=== PATIENT | female | born 1995 | race Caucasian/White ===

== ENCOUNTER 2016-09-29 17:24 | Emergency (ER) | payer OTHER, MEDICAID ==
[~2016-09-29] VITALS: Ht 152.4 cm; Wt 77.1 kg
[~2016-09-29 17:24] MED LIST: AEROCHAMBER1 DEV IH; ALBUTEROL2 PUFFS/17 IN; APAP/OXYCODONE1 TA1 PO; BACTRIM DS 8001 TAB PO; CIPRO 500MG TA500 MG PO; FEROSUL325 MG PO; GABAPENTIN 600600 MG PO; IBUPROFEN 600M600 MG PO; LORTAB 5/500 501 TAB PO; MACROBID 100MG100 M1 PO; MOTRIN400 MG PO; NAPROSYN 500MG500 MG PO; NOMEDS; PERCOCET 5/3251 EACH PO; PRENATAL VITAMI1 TA3 PO; SENNA DOCUSATE1 TAB PO; ZITHROMAX Z PA250 MG PO
[2016-09-29 17:47] LABS: URINE BILIRUBIN - DIPSTICK NEGATIVE (NEG); URINE BLOOD 3+ (NEG)
[2016-09-29 17:59] LABS: HEMOGLOBIN 14.1 g/dL (12.2-16.2); LYMPH # 3.4 K/mm3 (0.7-4.5); LYMPH % 25.3 % (10-50.0)
--- NOTE | 2016-09-29 19:06 | Emergency Room Report ---
History of Present Illness Time Seen by [id number] Presenting Problem in Triage Pt arrived:Walked Presenting Problem:PT C/O RLQ PAIN THAT HAS BEEN CONSISTENTLY GETTING WORSE OVER THE LAST 3 DAYS. PT DENIES ANY N/V/D OR VAGINAL BLEEDING. 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 N Clinical Suspician of Infection? N Mental Status: 1 - Regular (Normal Baseline) Sepsis Risk:Low Sepsis Risk Have you (or family members/close friends) recently traveled outside the [place]? N If Yes, where/when: Have you had exposure to infectious disease within the past month? N TB? Other? Specify: Comment The patient complains of RIGHT lower quadrant abdominal pain for 3 days. She denies nausea, vomiting, diarrhea, or fever. She has dysuria, burning, at the end of urination and for 5 minutes afterwards. No gross hematuria. She has had prior appendectomy and RIGHT nephrectomy. ALLERGIES Coded Allergies: PEANUTS (FOOD) (Severe, STOMACH PAIN, THROAT SWELLING 03/16/16) latex (Intermediate, I-ITCHING 03/16/16) NSAIDS (Non-Steroidal Anti-Inflamma (R/T RIGHT NEPHRECTOMY 03/16/16) Penicillins (03/16/16) penicillin V (Severe, NA-DIARRHEA 03/16/16) Home Medications Reported Medications Gabapentin (Gabapentin 600MG) 600 MG PO Q8 #90 History Medical History General CAD? No Angina: No [place]: No Hypertension? No Hyperlipidemia? No CHF? No DVT? No PE? No COPD? No Asthma? No Anemia? No GERD? No Gastric ulcers? No GI Bleed? No Hernia? No Thyroid Problems? No Hypothyroidism? No CVA? No Seizures? No Diabetes? No Renal Insuffiency? No End Stage Renal Disease? No UTI? Yes Stones? Yes BPH? No GB Disease: No Nephritic Syndrome? No Asplenia? No Hepatitis? No Sickle Cell Disease? No Arthritis? No Migraines? No Cataracts? No Glaucoma? No MRSA? No HIV? No TB? No Anxiety? No Depression? No Cancer? No More? 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 denies: abnormal vaginal bleeding, hematuria. Physical Exam Vital Signs Vital Signs Date Time Temp Pulse Resp B/P Pulse O2 O2 Flow FiO2 Ox Delivery Rate 09/29 1815 75 16 135/79 99 09/29 1727 98.5 78 18 120/65 96 General Appearance normal appearance, WD/WN Eye Exam - bilateral eye normal exam, bilateral eye PERRL, bilateral eye EOMI Ear, Nose, Throat hearing grossly normal, normal ENT inspection Neck normal inspection, non-tender, supple, full range of motion Respiratory Status Yes: trachea midline, chest symmetrical, non tender chest. No: respiratory distress. Lung Sounds bilateral: normal breath sounds, lungs clear. 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 Yes George was queried for this patient? Yes Reference #: [id number] Comment 1 rx. tylenol #3 on 03/16/16. Results/Orders Laboratory Tests 09/29/16 1745: Sodium 142, Potassium 3.7, Chloride 104, Carbon Dioxide 28, BUN 11, Creatinine 0.8, Estimated Creat Clear 134, Estimated GFR (MDRD) 90, Glucose 75, Calcium 8.7 , Total Bilirubin 0.3, AST 20, ALT 26, Alkaline Phosphatase 112, Total Protein 7.5, Albumin 3.7, Globulin 3.8 H, Albumin/Globulin Ratio 1.0 L, Amylase 70, Lipase 166, WBC 13.4 H, RBC 4.45, Hgb 14.1, Hct 40.3, MCV 90.4, RDW 13.6, Plt Count 259, MPV 9.1, Gran % 62.6, Gran # 8.4 H, Lymphocytes % 25.3, Monocytes % 7.0, Eosinophils % 4.2, Basophils % 0.9, Lymphocytes # 3.4, Monocytes # 0.9, Eosinophils # 0.6 H, Basophils # 0.1, PUBS MCHC 35.1, MCH 31.7 H 09/29/16 174: Urine Color YELLOW, Urine Appearance CLEAR, Urine pH 6.0, Ur Specific [place] 1.025, Urine Protein 1+ H, Urine Ketones NEGATIVE, Urine Blood 3+ H, Urine Nitrate NEGATIVE, Urine Bilirubin NEGATIVE, Urine Urobilinogen 0.2, Ur Leukocyte Esterase 3+ H, Urine RBC 10-20, Urine WBC 20-50, Amorphous Sediment 2+, Urine Bacteria 2+, Urine Glucose NEGATIVE Current Medication Orders Sig/Reji Start time Last Medication Dose Route Stop Time Status Admin Morphine Sulfate 4 MG ONCE ONE 09/29 1929 DC IV 09/29 1930 Ondansetron HCl 4 MG ONCE ONE 09/29 1929 DC IV 09/29 1930 Phenazopyridine HCl 200 MG ONCE ONE 09/29 1929 DC PO 09/29 1930 Trimethoprim/ 1 TABLET ONCE ONE 09/29 1929 DCr Sulfamethoxazole PO 09/29 1930 Sodium Chloride 10 ML PRN PRN 09/29 1745 AC IV 09/30 173 Orders Procedure Date/time Status DIET-NOTHING BY MOUTH 09/[address] ABD & PELVIS W/O CONTRAST 09/29 180 Active CULTURE, URINE 09/[address] ABD/PELVIS REQ 09/29 173 Complete IV SALINE LOCK 09/29 173 Active LIPASE 09/29 173 Complete CBC WITH AUTO DIFF 09/29 173 Complete CHEM 12 PROFILE 09/29 173 Complete AMYLASE 09/29 173 Complete URINALYSIS/COMPLETE 09/29 1734 Complete URINE 09/29 173 Complete XRAY/CT/US XRAY/CT/US CT abdomen, pelvis Comment CT scan interpreted by [facility] radiologist. Faxed report received and reviewed: 1.6 cm LEFT ovarian cyst several mildly enlarged lymph nodes within the RIGHT lower quadrant and mesenteric root similar to prior study, likely reactive, but can be seen with mesenteric adenitis. Surgically absent appendix. RIGHT kidney surgically absent. Departure Departure Disposition DC Home or Self Care(routine) Clinical Impression Primary Impression: Right lower quadrant abdominal pain Secondary Impressions: Urinary tract infection Qualifiers: Urinary tract infection type: acute cystitis Hematuria presence: with hematuria Qualified Code: N30.01 - Acute cystitis with hematuria Condition STABLE Referrals Caden Nielsen (Family) Patient Instructions DI for Abdominal Pain-Adult, DI for Urinary Tract Infection (UTI) Additional Instructions Additional instructions for ABDOMINAL PAIN: See your physician as soon as possible for further evaluation. Return immediately if worsening abdominal pain, vomiting, shortness of breath, fever, vomiting of blood or abdominal distention. Additional instructions for URINARY TRACT INFECTION: See your physician as soon as possible for further evaluation. Return immediately if you have an uncontrollable fever greater than 102 degrees, severe back or abdominal pain, inability to urinate, or repetetive vomiting. Prescriptions Current Visit Scripts SULFAMETHOXAZOLE W/TRIMETHOPRI (Bactrim Ds Tab) 1 TAB PO BID #20 TAB Phenazopyridine HCl (Pyridium) 200 MG PO TID #9 TAB HYDROCODONE/ACETAMINOPHEN ([place] 5-325 Tablet) 1 TAB PO Q6HP PRN pain #10 TAB ED Critical Care Critical Care No at 1934
--- NOTE | 2016-09-29 19:06 | Emergency Room Report ---
History of Present Illness Time Seen by [id number] Presenting Problem in Triage Pt arrived:Walked Presenting Problem:PT C/O RLQ PAIN THAT HAS BEEN CONSISTENTLY GETTING WORSE OVER THE LAST 3 DAYS. PT DENIES ANY N/V/D OR VAGINAL BLEEDING. 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 N Clinical Suspician of Infection? N Mental Status: 1 - Regular (Normal Baseline) Sepsis Risk:Low Sepsis Risk Have you (or family members/close friends) recently traveled outside the [place]? N If Yes, where/when: Have you had exposure to infectious disease within the past month? N TB? Other? Specify: Comment The patient complains of RIGHT lower quadrant abdominal pain for 3 days. She denies nausea, vomiting, diarrhea, or fever. She has dysuria, burning, at the end of urination and for 5 minutes afterwards. No gross hematuria. She has had prior appendectomy and RIGHT nephrectomy. ALLERGIES Coded Allergies: PEANUTS (FOOD) (Severe, STOMACH PAIN, THROAT SWELLING 03/16/16) latex (Intermediate, I-ITCHING 03/16/16) NSAIDS (Non-Steroidal Anti-Inflamma (R/T RIGHT NEPHRECTOMY 03/16/16) Penicillins (03/16/16) penicillin V (Severe, NA-DIARRHEA 03/16/16) Home Medications Reported Medications Gabapentin (Gabapentin 600MG) 600 MG PO Q8 #90 History Medical History General CAD? No Angina: No [place]: No Hypertension? No Hyperlipidemia? No CHF? No DVT? No PE? No COPD? No Asthma? No Anemia? No GERD? No Gastric ulcers? No GI Bleed? No Hernia? No Thyroid Problems? No Hypothyroidism? No CVA? No Seizures? No Diabetes? No Renal Insuffiency? No End Stage Renal Disease? No UTI? Yes Stones? Yes BPH? No GB Disease: No Nephritic Syndrome? No Asplenia? No Hepatitis? No Sickle Cell Disease? No Arthritis? No Migraines? No Cataracts? No Glaucoma? No MRSA? No HIV? No TB? No Anxiety? No Depression? No Cancer? No More? 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 denies: abnormal vaginal bleeding, hematuria. Physical Exam Vital Signs Vital Signs Date Time Temp Pulse Resp B/P Pulse O2 O2 Flow FiO2 Ox Delivery Rate 09/29 1815 75 16 135/79 99 09/29 1727 98.5 78 18 120/65 96 General Appearance normal appearance, WD/WN Eye Exam - bilateral eye normal exam, bilateral eye PERRL, bilateral eye EOMI Ear, Nose, Throat hearing grossly normal, normal ENT inspection Neck normal inspection, non-tender, supple, full range of motion Respiratory Status Yes: trachea midline, chest symmetrical, non tender chest. No: respiratory distress. Lung Sounds bilateral: normal breath sounds, lungs clear. 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 Yes George was queried for this patient? Yes Reference #: [id number] Comment 1 rx. tylenol #3 on 03/16/16. Results/Orders Laboratory Tests 09/29/16 1745: Sodium 142, Potassium 3.7, Chloride 104, Carbon Dioxide 28, BUN 11, Creatinine 0.8, Estimated Creat Clear 134, Estimated GFR (MDRD) 90, Glucose 75, Calcium 8.7 , Total Bilirubin 0.3, AST 20, ALT 26, Alkaline Phosphatase 112, Total Protein 7.5, Albumin 3.7, Globulin 3.8 H, Albumin/Globulin Ratio 1.0 L, Amylase 70, Lipase 166, WBC 13.4 H, RBC 4.45, Hgb 14.1, Hct 40.3, MCV 90.4, RDW 13.6, Plt Count 259, MPV 9.1, Gran % 62.6, Gran # 8.4 H, Lymphocytes % 25.3, Monocytes % 7.0, Eosinophils % 4.2, Basophils % 0.9, Lymphocytes # 3.4, Monocytes # 0.9, Eosinophils # 0.6 H, Basophils # 0.1, PUBS MCHC 35.1, MCH 31.7 H 09/29/16 174: Urine Color YELLOW, Urine Appearance CLEAR, Urine pH 6.0, Ur Specific [place] 1.025, Urine Protein 1+ H, Urine Ketones NEGATIVE, Urine Blood 3+ H, Urine Nitrate NEGATIVE, Urine Bilirubin NEGATIVE, Urine Urobilinogen 0.2, Ur Leukocyte Esterase 3+ H, Urine RBC 10-20, Urine WBC 20-50, Amorphous Sediment 2+, Urine Bacteria 2+, Urine Glucose NEGATIVE Current Medication Orders Sig/Reji Start time Last Medication Dose Route Stop Time Status Admin Morphine Sulfate 4 MG ONCE ONE 09/29 1929 DC IV 09/29 1930 Ondansetron HCl 4 MG ONCE ONE 09/29 1929 DC IV 09/29 1930 Phenazopyridine HCl 200 MG ONCE ONE 09/29 1929 DC PO 09/29 1930 Trimethoprim/ 1 TABLET ONCE ONE 09/29 1929 DCr Sulfamethoxazole PO 09/29 1930 Sodium Chloride 10 ML PRN PRN 09/29 1745 AC IV 09/30 173 Orders Procedure Date/time Status DIET-NOTHING BY MOUTH 09/[address] ABD & PELVIS W/O CONTRAST 09/29 180 Active CULTURE, URINE 09/[address] ABD/PELVIS REQ 09/29 173 Complete IV SALINE LOCK 09/29 173 Active LIPASE 09/29 173 Complete CBC WITH AUTO DIFF 09/29 173 Complete CHEM 12 PROFILE 09/29 173 Complete AMYLASE 09/29 173 Complete URINALYSIS/COMPLETE 09/29 1734 Complete URINE 09/29 173 Complete XRAY/CT/US XRAY/CT/US CT abdomen, pelvis Comment CT scan interpreted by [facility] radiologist. Faxed report received and reviewed: 1.6 cm LEFT ovarian cyst several mildly enlarged lymph nodes within the RIGHT lower quadrant and mesenteric root similar to prior study, likely reactive, but can be seen with mesenteric adenitis. Surgically absent appendix. RIGHT kidney surgically absent. Departure Departure Disposition DC Home or Self Care(routine) Clinical Impression Primary Impression: Right lower quadrant abdominal pain Secondary Impressions: Urinary tract infection Qualifiers: Urinary tract infection type: acute cystitis Hematuria presence: with hematuria Qualified Code: N30.01 - Acute cystitis with hematuria Condition STABLE Referrals Caden Nielsen (Family) Patient Instructions DI for Abdominal Pain-Adult, DI for Urinary Tract Infection (UTI) Additional Instructions Additional instructions for ABDOMINAL PAIN: See your physician as soon as possible for further evaluation. Return immediately if worsening abdominal pain, vomiting, shortness of breath, fever, vomiting of blood or abdominal distention. Additional instructions for URINARY TRACT INFECTION: See your physician as soon as possible for further evaluation. Return immediately if you have an uncontrollable fever greater than 102 degrees, severe back or abdominal pain, inability to urinate, or repetetive vomiting. Prescriptions Current Visit Scripts SULFAMETHOXAZOLE W/TRIMETHOPRI (Bactrim Ds Tab) 1 TAB PO BID #20 TAB Phenazopyridine HCl (Pyridium) 200 MG PO TID #9 TAB HYDROCODONE/ACETAMINOPHEN ([place] 5-325 Tablet) 1 TAB PO Q6HP PRN pain #10 TAB ED Critical Care Critical Care No at 1934
[2016-09-29] MEDS ORDERED: BACTRIM DS 8001 TA1 PO (19:29)
[2016-09-29] MEDS ORDERED: PYRIDIUM200 M2 PO (19:29)
[2016-09-29] MEDS ORDERED: NORCO 325 MG-51 TAB PO (19:29)
[2016-09-29 20:02] VITALS: BP 132/85
--- NOTE | 2016-09-30 05:30 | RADIOLOGY REPORT PS360 ---
CT ABD PELVIS W/O CONTRAST CLINICAL INDICATION: Right lower quadrant pain RLQ PAIN COMPARISON: 11/08/2013 TECHNIQUE: Axial images obtained with sagittal and coronal reformats. PROCEDURE: Oral Contrast: None IV Contrast: None . FINDINGS: Lower thorax: 2 mm nodule right lung base laterally nonspecific. 5 mm noncalcified nodule right lung base laterally unchanged ABDOMEN: Liver: No masses or biliary dilatation. Gallbladder: Nondistended. No radio opaque stones. Pancreas: No masses or peripancreatic fluid collections. Spleen: Unremarkable. Adrenals: Unremarkable Kidneys/ureters: Prior right nephrectomy. Unremarkable left kidney. No hydronephrosis or obstructing ureteral calculi. PELVIS: Reproductive: 1.8 cm left ovarian cyst Bladder: Nondistended. No obvious stones or masses. Appendix: Reported appendectomy. No evidence of appendicitis ABDOMEN & PELVIS: Stomach bowel: Moderate amount retained colonic feces. No evidence of intestinal obstruction. Peritoneum: No abnormal fluid collections. No obvious inflammatory changes. No free air. Lymph nodes: Scattered small lymph nodes are present in the mesenteric root and right lower quadrant. These are not significantly changed. The largest nodes in the right lower quadrant measuring up to 1.5 x 1.1 cm. Vasculature: No evidence of abdominal aortic aneurysm. No retroperitoneal hemorrhage evident. Bones: No acute fracture IMPRESSION: 1. No acute intra-abdominal or pelvic pathology. 2. Scattered small lymph nodes in the mesenteric root and right lower quadrant not significant changed. This may be reactive. Mesenteric adenitis also a consideration. 3. 1.8 cm left ovarian cyst. 4. Constipation 5. Prior right nephrectomy
== END 2016-09-29 20:03 | disposition home or self-care (01) ==
LOC: ER 17:24
PROVIDERS: Emergency Medicine
DX: N30.01 Acute cystitis with hematuria (principal)
CPT/HCPCS: J2405